=== PATIENT | female | born 1965 | race American Indian/Alaskan Native ===

== ENCOUNTER 2019-08-31 19:44 | Inpatient (IN) | payer MEDICARE ==
--- NOTE | 2019-08-31 20:24 | Event Note ---
ED Screening Note Date of service: 08/31/19 Time: 20:23 ED Screening Note: 54 y/o female comes in for cold like symptoms and swelling to her feet. She complains of acute on chronic neck pain had surgery on 07/24/19 with hardware of her neck. Pain is radiating to her shoulder down her left arm. No recent trauma since her surgery. This initial assessment/diagnostic orders/clinical plan/treatment(s) is/are subject to change based on patients health status, clinical progression and re-assessment by fellow clinical providers in the ED. Further treatment and workup at subsequent clinical providers discretion. Patient/guardian urged not to elope from the ED as their condition may be serious if not clinically assessed and managed. Initial orders include:
[2019-08-31] MEDS ORDERED: SODIUM CHLORIDE 0.9% 1000 ML 1,000 ML IV ONE (21:21)
[2019-08-31 22:11] LABS: Basophils % (Auto) 0.3 % (0.0-1.8); Eosinophils # (Auto) 0.1 K/mm3 (0.0-0.4); Eosinophils % (Auto) 0.7 % (0.0-4.3); Hematocrit 32.5 % (30.3-42.9); Hemoglobin 10.6 gm/dl (10.1-14.3); Lymphocytes # (Auto) 1.5 K/mm3 (1.2-5.4); Mean Corpuscular HGB Conc 33 % (30-34); Mean Corpuscular Volume 89 fl (79-97); Monocytes # (Auto) 1.1 K/mm3 (0.0-0.8); Platelet Count 294 K/mm3 (140-440); Red Blood Count 3.67 M/mm3 (3.65-5.03); Red Cell Distribution Width 13.6 % (13.2-15.2)
[2019-08-31 22:29] LABS: Albumin 3.9 g/dL (3.9-5); BUN/Creatinine Ratio 12; Blood Urea Nitrogen 11 mg/dL (7-17); Calcium 9.6 mg/dL (8.4-10.2); Hemolysis Index 0
[2019-08-31 22:37] LABS: Alanine Aminotransferase < 5 units/L (7-56)
[2019-09-01] MEDS ORDERED: KETOROLAC 30 MG/1 ML INJ IV ONE (00:59)
--- NOTE | 2019-09-01 01:10 | Cat Scan Report ---
CTA of the chest with 3D Reconstruction Indication: ,dyspnea: s/p neck surgery, r/o PE Technique: TECHNIQUE: Axial CT images were obtained through the chest after injection of 100 cc of Omnipaque 350 IV contrast. 3 plane MIP reconstructions were produced. All CT scans at this location are performed using CT dose reduction for ALARA by means of automated exposure control. COMPARISON: None Automatic exposure control was utilized in an attempt to reduce radiation dose. Findings: Pulmonary arteries: The main pulmonary artery and right and left pulmonary artery branches fill satis factorily with contrast. No pulmonary embolus is seen. Lungs: There are groundglass opacities noted diffusely in the lungs could represent pneumonitis or ed brian. Mediastinum: There is mediastinal and hilar adenopathy Aorta: Normal in diameter. No dissection seen within limits of this exam. Impression: No pulmonary embolus is seen There is mediastinal and hilar adenopathy. There are diffuse groundglass opacities in the lungs which could represent edema or pneumonitis. Signer Name: Kurtis Pena MD Signed: 09/01/2019 1:05 AM Workstation Name: [id number]
--- NOTE | 2019-09-01 01:16 | Cat Scan Report ---
CT NECK WITH CONTRAST HISTORY: Worsening neck pain, recent neck surgery COMPARISON: None. TECHNIQUE: Routine CT of the neck is performed following intravenous contrast. All CT scans at this [facility] [place] are performed using CT dose reduction for ALARA by means of automated exposure control. CONTRAST: 100 mL [id number] FINDINGS: Skull Base: No significant abnormality. Parotid, Carotid, Retropharyngeal, Prevertebral, Pharyngeal Mucosal, and Corporate Ethics Officer Spaces: No abnorm al mass, enhancing lesion or other significant abnormality. Airway: Patent and without significant abnormality. Lymphatics: No lymphadenopathy. Vasculature: No significant abnormality. Osseous Structures: There has been ACDF at C5-C7 without hardware fracture or malalignment. Additional findings: None. IMPRESSION: 1. No acute findings in the neck. Signer Name: Timmy Mendez MD Signed: 09/01/2019 1:12 AM Workstation Name: [id number]
[2019-09-01] MEDS ORDERED: cefTRIAXone/NS 1 GM/50 ML 1 GM/50 ML BAG IV ONE (01:47)
[2019-09-01] MEDS ORDERED: AZITHROMYCIN 250 MG TAB PO ONE (01:47)
[2019-09-01] MEDS ORDERED: dexAMETHasone 20 MG/5 ML VIAL IV ONE (01:47)
[2019-09-01] MEDS ORDERED: SODIUM CHLORIDE 0.9% 1000 ML 1,000 ML IV ONE (03:49)
[2019-09-01] MEDS ORDERED: IPRATROPIUM/ALBUTEROL SULFATE 3 ML AMPUL.NEB IH ONE (03:49)
--- NOTE | 2019-09-01 03:56 | Emergency Department Report ---
ED Neck Pain/Injury HPI - General Chief Complaint: Neck Pain/Injury Stated Complaint: NECK PAIN Time Seen by Provider: 08/31/19 20:22 Mode of arrival: Ambulatory Limitations: No Limitations - History of Present Illness Initial Comments: Patient is a 54-year-old -Citizen Of [place] female with a history of hyperlipidemia and chronic pain due to osteoarthritis and is status post ACDF surgery at C5-C7 cervical vertebrae about 1 month ago who presents to the ED with complaint of acute onset persistent worsening neck pain that radiates to her scalp causing a headache and bilateral upper extremity pain with tingling sensations, shortness of breath and generalized weakness for the last 4 days. Patient also states that she has been traveling from [facility] by bus and arrived in [place] 2 days ago. Patient denies chest pain, fever, chills, dizziness, syncope, abdominal pain, nausea, vomiting, traumatic injury, heavy lifting, sore throat, dysphagia, dysphonia, change in vision or seizures. Patient states that she is currently on Roxicodone's for her neck pain but which have not helped control her pain. MD Complaint: neck pain, other (headache; dyspnea, generalized weakness) -: Sudden, days(s) (4) Place: home Radiation: occiput Severity: severe, constant Severity scale (0 -10): 8 Quality: sharp, aching Consistency: constant Improves With: none Worsens With: movement of neck Context: other (recent ACDF surgery of C5-C7 ) Associated Symptoms: headache, weakness. denies: numbness, tingling, vertigo, difficulty walking, swollen glands, difficulty swallowing, nausea, vomiting Treatments Prior to Arrival: Acetaminophen - Related Data Allergies Allergy/AdvReac Type Severity Reaction Status Date / Time No Known Allergies Allergy Unverified 08/31/19 20:29 ED Review of Systems ROS: Stated complaint: NECK PAIN Other details as noted in HPI Constitutional: weakness. denies: chills, fever Eyes: denies: eye pain, eye discharge, vision change ENT: denies: ear pain, throat pain Respiratory: shortness of breath, SOB with exertion. denies: cough, wheezing Cardiovascular: denies: chest pain, palpitations Endocrine: no symptoms reported Gastrointestinal: denies: abdominal pain, nausea, vomiting, diarrhea Genitourinary: denies: urgency, dysuria, discharge Musculoskeletal: arthralgia (Neck pain), myalgia, other (Bilateral upper extremity tingling sensations). denies: back pain, joint swelling Skin: denies: rash, lesions Neurological: headache. denies: weakness, paresthesias Psychiatric: denies: anxiety, depression Hematological/Lymphatic: denies: easy bleeding, easy bruising ED Past Medical Hx - Past Medical History Hx Arthritis: Yes Hx Asthma: Yes Additional medical history: Chronic Pain. High Cholesterol - Surgical History Past Surgical History?: Yes Additional Surgical History: Neck surgery with hardware, - Social History Smoking Status: Current Every Day Smoker Substance Use Type: None ED Physical Exam - General Limitations: No Limitations General appearance: alert, in no apparent distress - Head Head exam: Present: atraumatic, normocephalic, normal inspection - Eye Eye exam: Present: normal appearance, PERRL, EOMI Pupils: Present: normal accommodation - ENT ENT exam: Present: normal exam, normal orophraynx, mucous membranes moist, TM's normal bilaterally, normal external ear exam - Neck Neck exam: Present: normal inspection, tenderness (Palpable cervical paraspinal musculoskeletal tenderness with limited range of motion due to pain). Absent: meningismus, full ROM (Limited range of motion of neck due to pain), lymphadenopathy - Respiratory Respiratory exam: Present: normal lung sounds bilaterally, wheezes (Mild spasms wheezes throughout). Absent: respiratory distress, rales, rhonchi, stridor, chest wall tenderness, accessory muscle use, decreased breath sounds - Cardiovascular Cardiovascular Exam: Present: regular rate, normal rhythm, normal heart sounds. Absent: systolic murmur, diastolic murmur, rubs, gallop - GI/Abdominal GI/Abdominal exam: Present: soft, normal bowel sounds. Absent: tenderness, hyperactive bowel sounds - Extremities Exam Extremities exam: Present: normal inspection, full ROM, normal capillary refill - Back Exam Back exam: Present: normal inspection, full ROM. Absent: tenderness, CVA tenderness (R), muscle spasm, paraspinal tenderness, vertebral tenderness - Neurological Exam Neurological exam: Present: alert, oriented X3, CN II-XII intact, normal gait, reflexes normal - Psychiatric Psychiatric exam: Present: normal affect, normal mood, anxious - Skin Skin exam: Present: warm, dry, intact, normal color. Absent: rash ED Course Vital Signs 08/31/19 08/31/19 09/01/19 20:07 21:15 01:41 Temperature 99.0 F 99.1 F Pulse Rate 87 86 Respiratory 20 18 18 Rate Blood Pressure 92/50 Blood Pressure 95/61 [Left] O2 Sat by Pulse 97 93 Oximetry 09/01/19 09/01/19 02:11 03:40 Temperature Pulse Rate 60 Respiratory 18 18 Rate Blood Pressure Blood Pressure 95/56 [Left] O2 Sat by Pulse 92 Oximetry ED Medical Decision Making - Lab Data Result diagrams: 08/31/19 21:45 08/31/19 21:45 - Radiology Data Radiology results: report reviewed, image reviewed Findings [facility] [address] [place] [address] Cat Scan Report Signed Patient: NAYANA MENJIVAR MR#: [id number] : 1965 Acct:[id number] Age/Sex: 54 / F ADM Date: 08/31/19 Loc: ED Attending Dr: Ordering Physician: AUDREY ORR Date of Service: 08/31/19 Procedure(s): CT neck w con Accession Number(s): [id number] cc: AUDREY ORR CT NECK WITH CONTRAST HISTORY: Worsening neck pain, recent neck surgery COMPARISON: None. TECHNIQUE: Routine CT of the neck is performed following intravenous contrast. All CT scans at this location are performed using CT dose reduction for ALARA by means of automated exposure control. CONTRAST: 100 mL [id number] FINDINGS: Skull Base: No significant abnormality. Parotid, Carotid, Retropharyngeal, Prevertebral, Pharyngeal Mucosal, and Interactive Video Technician Spaces: No abnormal mass, enhancing lesion or other significant abnormality. Airway: Patent and without significant abnormality. Lymphatics: No lymphadenopathy. Vasculature: No significant abnormality. Osseous Structures: There has been ACDF at C5-C7 without hardware fracture or malalignment. Additional findings: None. IMPRESSION: 1. No acute findings in the neck. Signer Name: Timmy Mendez MD Signed: 09/01/2019 1:12 AM Workstation Name: [id number] Transcribed By: ASIYA Dictated By: Timmy Mendez MD Electronically Authenticated By: Timmy Mendez MD Signed Date/Time: 09/01/19111 DD/ 9 TD/TT: - Findings [facility] [address] [place] [address] Cat Scan Report Signed Patient: NAYANA MENJIVAR MR#: [id number] : 1965 Acct:[id number] Age/Sex: 54 / F ADM Date: 08/31/19 Loc: ED Attending Dr: Ordering Physician: AUDREY ORR Date of Service: 08/31/19 Procedure(s): CT angio chest Accession Number(s): [id number] cc: AUDREY ORR CTA of the chest with 3D Reconstruction Indication: ,dyspnea: s/p neck surgery, r/o PE Technique: TECHNIQUE: Axial CT images were obtained through the chest after injection of 100 cc of Omnipaque 350 IV contrast. 3 plane MIP reconstructions were produced. All CT scans at this location are performed using CT dose reduction for ALARA by means of automated exposure control. COMPARISON: None Automatic exposure control was utilized in an attempt to reduce radiation dose. Findings: Pulmonary arteries: The main pulmonary artery and right and left pulmonary artery branches fill satisfactorily with contrast. No pulmonary embolus is seen. Lungs: There are groundglass opacities noted diffusely in the lungs could re present pneumonitis or edema. Mediastinum: There is mediastinal and hilar adenopathy Aorta: Normal in diameter. No dissection seen within limits of this exam. Impression: No pulmonary embolus is seen There is mediastinal and hilar adenopathy. There are diffuse groundglass opacities in the lungs which could represent edema or pneumonitis. Signer Name: Kurtis Pena MD Signed: 09/01/2019 1:05 AM Workstation Name: [id number] Transcribed By: Dictated By: Kurtis Pena MD Electronically Authenticated By: Kurtis Pena MD Signed Date/Time: 09/01/19104 DD/ 2 TD/TT: - Medical Decision Making This is a 54-year-old female with a history of hyperlipidemia, asthma and chronic pain due to osteoarthritis and status post cervical ACDF surgery 1 month ago and who is currently on Roxicodone's for pain presents to the ED with complaint of worsening neck pain, shortness of breath and headache with generalized weakness for the last 4 days. Patient also states that she has just arrived from [place] 2 days ago by bus having trouble for 2 days. In the ED, patient is alert and oriented x3 and is not in any distress but appears to be uncomfortable and is hypotensive in triage. Lab test results were reviewed and are all nonactionable except for acute hyponatremia 131 mmol/L and acute hyperglycemia of 120 mg/dL. Neck CT with contrast shows no acute abnormality except for a recent ACDF at C5-C7 without hardware fracture or malalignment. Chest CTA shows mediastinal and hilar adenopathy and diffuse groundglass opacities in the lungs which could represent edema or pneumonitis. Patient was treated for pain in the ED and also treated with normal saline 2 L IV bolus. Patient also received DuoNeb treatment in the ED as well as Decadron 10 mg IV x1. Patient also received Rocephin 1 g IV x1 and azithromycin 500 mg p.o. x1. On reevaluation, patient is still hypotensive with blood pressure of 95/56 and is hypoxic with oxygen saturation of 88% in room air. These findings were discussed with the ED attending physician Dr. Goff who advised that the patient be admitted to the hospitalist for further evaluation. I paged and discussed the patient's case with the hospitalist physician on-call Dr. Walker who admitted the patient to the hospital. - Differential Diagnosis pneumonia; asthma; CAD; PE; Hypoxia Critical care attestation.: If time is entered above; I have spent that time in minutes in the direct care of this critically ill patient, excluding procedure time. ED Disposition Clinical Impression: Shortness of breath, Cervical paraspinal muscle spasm, Hypoxia, Hypotension due to medication Pneumonia Qualifiers: Pneumonia type: due to unspecified organism Laterality: bilateral Lung location: unspecified part of lung Qualified Code(s): J18.9 - Pneumonia, unspecified organism Disposition: DC-09 OP ADMIT IP TO THIS HOSP Is pt being admited?: Yes Condition: Stable Instructions: Community-acquired Pneumonia (ED), Hypoxia (ED), Hypotension (ED) Referrals: PRIMARY CARE,MD [Primary Care Provider] - 3-5 Days Time of Disposition: 04:13 Print Language: LUXEMBOURGISH
[2019-09-01 08:00] VITALS: BP 114/69
--- NOTE | 2019-09-01 09:01 | Event Note ---
Date: 09/01/19 Patient seen and examined. Patient does not require admission. She will be discharged from ED, Hospitalist consultation note to follow. She is not hypoxic, she does not have pneumonia, she not septic, no SIRS and vitals are stable, her bp is stable. It appears she has chronic lungs findings, her history and exam suspicious for Sarcoidosis, which should be outpatient workup.
--- NOTE | 2019-09-01 09:12 | Consultation ---
History of Present Illness - Reason for Consult Consult date: 09/01/19 Evaluate for pneumonia - History of Present Illness Patient is a 54 yo AA woman with a history of tobacco dependency, chronic pain syndrome from neck pains and dyslipidemia who actually presents with neck pains but mentions MARJ for 4 days. She reports having neck surgery on Jul 24, 2019 but doesn't know where in [facility]. In ED she has acute onset persistent worsening neck pain that radiates to her scalp causing a headache and bilateral upper extremity pain with tingling sensations, shortness of breath and gen eralized weakness for the last 4 days. She reports visiting here from [place] by bus 2 days ago. Patient denies chest pain, fever, chills, dizziness, syncope, abdominal pain, nausea, vomiting, traumatic injury, heavy lifting, sore throat, dysphagia, dysphonia, change in vision or seizures. Patient states that she is currently on Roxicodone and Gabapentin for her neck pain but which have not helped control her pain. Initial vitals, 92/50 hr 87 99F, rr 20, pulse ox 97% RA. PMH: as hp. PSH: Neck surgery and x 1 SH: 1/2 ppd tob, occasional alcohol, occassional marijuana FH: hypertension ROS: Constitutional: denies: fever ENT: denies: throat or neck pain Respiratory: +back pad inspector "dry" cough, shortness of breath Cardiovascular: denies: chest pain Endocrine: denies unexplained weight loss or gain Gastrointestinal: denies: abdominal pain, nausea Genitourinary: denies: dysuria Rectal: denies no incontinence, no bleeding, no itching, no discharge Musculoskeletal: denies swelling, +myaglia, Skin: + rash Neurological: denies: headache Hematological/Lymphatic: denies: easy bleeding or easy bruising Allergic/Immunologic: no urticaria, no allergic rhinitis, no anaphylaxis Psych: denies sadness or hopelessness, SI/HI Medications and Allergies Allergies Allergy/AdvReac Type Severity Reaction Status Date / Time No Known Allergies Allergy Unverified 08/31/19 20:29 Home Medications Medication Instructions Recorded Confirmed Last Taken Type Acetaminophen [Tylenol] 325 mg PO Q6H PRN #8 tab 09/01/19 Unknown Rx Albuterol INH(or & Nicu Only) 2 puff IH QID PRN #8.5 gram 09/01/19 Unknown Rx [ProAir HFA Inhaler] cefUROXime [Ceftin] 2 tab PO BID #28 tablet 09/01/19 Unknown Rx methylPREDNISolone [Medrol 4MG 1 dose PO DAILY #1 tab.ds.pk 09/01/19 Unknown Rx DOSEPAK (21 tabs)] Exam - Physical Exam Narrative exam: Gen: WDWN, NAD, Awake, Alert, Orientated x 3 HEENT: NCAT, EOMI, PERRL, OP Clear Neck: supple, no adenopathy, no thyromegaly, no JVD, anterior cervical scar CVS/Heart: RRR, normal S1S2, pulses present bilaterally Chest/Lungs: CTA B, Symmetrical chest expansion, good air entry bilaterally GI/Abdomen: soft, NTND, good bowel sounds, no guarding or rebound /Bladder: no suprapubic tenderness, no CVA or paraspinal tenderness Extermity/Skin: no c/c/e, numerous 0.5- to 0.3-cm deep-seated well circised plaque on the trunk and extremities, back, erythema nodosum type circular lesion around calf MSK: FROM x 4 Neuro: CN 2-12 grossly intact, no new focal deficits Psych: calm - Constitutional Vitals: Temp Pulse Resp BP Pulse Ox 99.1 F 66 20 114/69 100 08/31/19 21:15 09/01/19 07:59 09/01/19 07:59 09/01/19 07:59 09/01/19 07:59 Results - Labs CBC & Chem 7: 08/31/19 21:45 08/31/19 21:45 Labs: Abnormal lab results 08/31/19 08/31/19 Range/Units 21:45 21:45 Ashley % (Auto) 10.0 H (0.0-7.3) % Ashley # 1.1 H (0.0-0.8) K/mm3 Seg Neutrophils % 75.0 H (40.0-70.0) % Seg Neutrophils # 8.1 H (1.8-7.7) K/mm3 Sodium 131 L (137-145) mmol/L Chloride 92.8 L (98-107) mmol/L Glucose 120 H (65-100) mg/dL ALT < 5 L (7-56) units/L Assessment and Plan Patient is a 54 yo AA woman with a history of tobacco dependency, chronic pain syndrome from neck pains and dyslipidemia who actually presents with neck pains but mentions MARJ for 4 days. She reports having neck surgery on Jul 24, 2019 but doesn't know where in [facility]. In ED she has acute onset persistent worsening neck pain that radiates to her scalp causing a headache and bilateral upper extremity pain with tingling sensations, shortness of breath and generalized weakness for the last 4 days. She reports visiting here from [place] by bus 2 days ago. Patient denies chest pain, fever, chills, dizziness, syncope, abdominal pain, nausea, vomiting, traumatic injury, heavy lifting, sore throat, dysphagia, dysphonia, change in vision or seizures. Patient states that she is currently on Roxicodone and Gabapentin for her neck pain but which have not helped control her pain. Initial vitals, 92/50 hr 87 99F, rr 20, pulse ox 97% RA, * CT neck with contrast IMPRESSION: 1. No acute findings in the neck. * CTA chest Impression: No pulmonary embolus is seen, There is mediastinal and hilar adenopathy. There are diffuse groundglass opacities in the lungs which could represent edema or pneumonitis. Neck pains from OA neck s/p surgery: C-spine issues are not treatable here SOB with hilar adenopathy: out patient workup for Sarcodosis ?Yuni, will treat empirically with medrol dose pack and abx, follow up with [employer]i [employer] Hypotension: I believe she is taking too much oxycodone and when I mentioned this she became rude and dismissive Tobacco dependency: appliance counselor on stopping Dispo: home, I believe the real reason patient came to the ED was for neck pains. She mentioned SOB and one bedside pulse ox was 88% and CTA chest was done which showed incidental mediastinal and hilar adenopathy with diffuse gr oundglass opacities. She is not hypoxic. Not on O2. I will not admit for IV pain medications, she asked about.
== END 2019-09-01 09:50 | disposition home or self-care (01) | DRG 552 ==
LOC: ED 19:44 → 3A 09-01 04:17
PROVIDERS: ADMIT Internal Medicine; ATTEND Internal Medicine
DX: M54.2 Cervicalgia (principal); I95.2 Hypotension due to drugs; J45.909 Unspecified asthma, uncomplicated; M19.90 Unspecified osteoarthritis, unspecified site; F17.200 Nicotine dependence, unspecified, uncomplicated; F12.90 Cannabis use, unspecified, uncomplicated; G89.4 Chronic pain syndrome; R59.9 Enlarged lymph nodes, unspecified; R59.0 Localized enlarged lymph nodes; M62.838 Other muscle spasm; Z82.49 Family history of ischemic heart disease and other diseases of the circulatory system; Z72.89 Other problems related to lifestyle; Z71.6 Tobacco abuse counseling
CPT/HCPCS: 36415; 70491; 71275; 80053; 83880; 84484; 85025; 87040; 93005; 93010; 96361; 96365; 96375; G0378; J0696; J1100; J1885; J7030; Q9967